=== PATIENT | female | born 1970 | race Caucasian/White ===

== ENCOUNTER 2017-06-24 10:55 | Day surgery (SDC) | payer OTHER ==
[2017-06-18 15:15] LABS: CLARITY,URINE CLOUDY (Clear); COLOR,URINE YELLOW (Yellow); GLUCOSE, URINE NEGATIVE (Neg); KETONES,URINE NEGATIVE (Neg); LEUKOCYTE ESTERASE ,URINE TRACE (Neg); NITRITES, URINE NEGATIVE (Neg); OCCULT BLOOD,URINE TRACE-INTACT (Neg); PROTEIN,URINE NEGATIVE (Neg); UROBILINOGEN,URINE 0.2 E.U/dL (0.2-1.0)
[2017-06-18 15:18] LABS: BASOPHILS # (AUTO) 0.1 X10'3 (0-0.2); BASOPHILS % (AUTO) 0.8 % (0-1); EOSINOPHILS # (AUTO) 0.4 X10'3 (0-0.9); EOSINOPHILS % (AUTO) 3.5 % (0-6); LYMPHOCYTES # (AUTO) 3.3 X10'3 (1.1-4.8); LYMPHOCYTES % (AUTO) 29.2 % (21-51); MEAN CORPUSCULAR HEMOGLOBIN 30.9 PG (27.0-31.0); MEAN CORPUSCULAR HGB CONC 33.9 % (33.0-36.5); MEAN CORPUSCULAR VOLUME 91.2 FL (78-98); MEAN PLATELET VOLUME 8.3 FL (7.4-10.4); MONOCYTES # (AUTO) 0.8 X10'3 (0-0.9); MONOCYTES % (AUTO) 7.5 % (2-12); NEUTROPHILS # (AUTO) 6.6 X10'3 (1.8-7.7); PRE OP HEMATOCRIT 42.1 % (35.0-45.0); PRE OP HEMOGLOBIN 14.3 g/dL (12.0-16.0); PRE OP PLATELET COUNT 428 X10'3 (140-440); RED BLOOD COUNT 4.62 X10'6 (4.20-5.60); RED CELL DISTRIBUTION WIDTH 14.5 % (11.5-14.5)
[2017-06-18 15:19] LABS: UA COLLECTION TYPE CLN CATCH MIDSTREAM
[2017-06-18 15:24] LABS: BACTERIA,URINE 2+ /HPF (Neg); SQUAMOUS EPITHELIAL CELL,UR MANY /LPF (FEW); WBC,URINE 0-4 /HPF (0-4)
[2017-06-18 15:27] LABS: ALBUMIN 3.3 G/DL (3.4-5.0); ALBUMIN/GLOBULIN RATIO 0.8 (1.1-1.5); ALKALINE PHOSPHATASE 93 IU/L (46-116); BLOOD UREA NITROGEN 12 MG/DL (7-18); BUN/CREATININE RATIO 16.7 (6.6-38.0); CALCIUM 9.6 MG/DL (8.5-10.1); CHLORIDE 104 MMOL/L (99-107); CREATININE 0.72 MG/DL (0.40-0.90); PRE OP ALT 27 U/L (30-65); PRE OP ANION GAP 7 (8-16); PRE OP AST 12 U/L (10-37); PRE OP BILIRUB, TOTAL 0.2 MG/DL (0.0-1.0); PRE OP GLUCOSE 93 MG/DL (70-104); PRE OP POTASSIUM 4.2 MMOL/L (3.4-5.1); PRE OP SODIUM 141 MMOL/L (135-145); TOTAL CARBON DIOXIDE 30.1 MMOL/L (24-32); TOTAL PROTEIN 7.6 G/DL (6.4-8.2); eGFR 86 ML/MIN
[2017-06-24] VITALS (10 sets, daily range): BP systolic 112–158; BP diastolic 48–99
[~2017-06-24] VITALS: Ht 170.2 cm; Wt 100.9 kg
[~2017-06-24 10:55] MED LIST: ACET-2119 PO; ALBU8.5H8 INH; DULO60CA64 PO; GABA-530 PO; ceFAZolin inj. 2,000 MG in dextrose 5%-water 100 ML IV ONE; cefazolin/dext.iso 2gm/50ml 50 ML IV ONE; famotidine 20mg tablet PO ONE; ringers solution, lacted 1,000 ML IV SCH
[2017-06-24] MEDS ORDERED: LIDOcaine 1% (10mg/ml) 2ml vial ONE (11:08)
[2017-06-24] MEDS ORDERED: LORazepam 2 mg/ml vial IV ONE ×2 (12:40→13:05)
[2017-06-24] MEDS ORDERED: midazolam 2 mg/2 ml injection ONE (13:03)
[2017-06-24] MEDS ORDERED: fentaNYL /PF 50mcg/ml 5ml ampule ONE (13:03)
[2017-06-24] MEDS ORDERED: LIDOcaine 1%/PF (10mg/ml) 5ml vial ONE (13:05)
[2017-06-24] MEDS ORDERED: ceFAZolin 1000mg inj ONE (13:19)
[2017-06-24] MEDS ORDERED: BUPIVAcaine/PF 2.5 mg/ml (0.25%) 30ml vial ONE (13:19)
[2017-06-24] MEDS ORDERED: sevoflurane 250ml liquid IH ONE (13:29)
[2017-06-24] MEDS ORDERED: ondansetron/PF 4mg/2ml inj ONE (13:29)
[2017-06-24] MEDS ORDERED: neostigmine methylsulfate 1 MG/ML 10ml vial ONE (13:29)
[2017-06-24] MEDS ORDERED: glycopyrrolate 0.2mg/ml inj ONE (13:29)
[2017-06-24] MEDS ORDERED: rocuronium 10mg/ml inj IV ONE (13:37)
[2017-06-24] MEDS ORDERED: ketorolac trometh. 30mg/ml inj. ONE (13:45)
[2017-06-24] MEDS ORDERED: dexamethasone sod phosphate 4mg/ml inj. ONE (13:45)
[2017-06-24] MEDS ORDERED: HYDROcodone/acetaminophen 10/325mg tab PO ONE (15:20)
[2017-06-24] MEDS ORDERED: meperidine/PF 25mg/ml syringe ONE ×2 (15:25→15:33)
[2017-06-24] MEDS ORDERED: ringers solution, lacted 1,000 ML IV SCH (15:39)
[2017-06-24] MEDS ORDERED: proCHLORperazine 10 MG/2 ml inj IV PRN (15:40)
[2017-06-24] MEDS ORDERED: ondansetron/PF 4mg/2ml inj IV PRN (15:40)
[2017-06-24] MEDS ORDERED: meperidine/PF 50mg/ml syringe IV PRN ×2 (15:40)
[2017-06-24] MEDS ORDERED: acetaminophen 1,000mg/100ml IV 100 ML IV ONE (15:55)
[2017-06-24] MEDS ORDERED: ipratropium/albuterol 3ml nebule IH ONE (15:55)
== END 2017-06-24 16:28 | disposition home or self-care (01) ==
LOC: PAS 10:55
PROVIDERS: ATTEND Surgery
DX: K43.2 Incisional hernia without obstruction or gangrene (principal); F17.210 Nicotine dependence, cigarettes, uncomplicated; J45.998 Other asthma; G47.33 Obstructive sleep apnea (adult) (pediatric); E66.9 Obesity, unspecified; F41.9 Anxiety disorder, unspecified; F32.9 Major depressive disorder, single episode, unspecified; Z79.82 Long term (current) use of aspirin; Z68.34 Body mass index [BMI] 34.0-34.9, adult; Z88.5 Allergy status to narcotic agent; Z90.710 Acquired absence of both cervix and uterus; Z90.49 Acquired absence of other specified parts of digestive tract; Z98.890 Other specified postprocedural states; Z79.899 Other long term (current) drug therapy
CPT/HCPCS: 36415; 49565; 49568; 71046; 80053; 81001; 85025; 93005; 94640; 94760; A6449; C1713; C1781; J0131; J0690; J1100; J1885; J2001; J2060; J2175; J2250; J2405; J2710; J3010; J3490; J7060; J7120; A7000

== ENCOUNTER 2017-06-27 09:59 | Emergency (ER) | payer OTHER ==
[~2017-06-27] VITALS: Ht 170.2 cm; Wt 102.7 kg
[~2017-06-27 09:59] MED LIST changes: -ceFAZolin inj. 2,000 MG in dextrose 5%-water 100 ML IV ONE; -cefazolin/dext.iso 2gm/50ml 50 ML IV ONE; -famotidine 20mg tablet PO ONE; -ringers solution, lacted 1,000 ML IV SCH
[2017-06-27] MEDS ORDERED: HYDR-3965 PO (10:45)
[2017-06-27 10:59] VITALS: BP 159/86
== END 2017-06-27 11:00 | disposition home or self-care (01) ==
LOC: ER 10:00
DX: G89.18 Other acute postprocedural pain (principal); R10.9 Unspecified abdominal pain; Z79.899 Other long term (current) drug therapy
CPT/HCPCS: 99283

== ENCOUNTER 2017-07-12 19:56 | Emergency (ER) | payer OTHER ==
[~2017-07-12] VITALS: Ht 170.2 cm; Wt 103.1 kg
[~2017-07-12 19:56] MED LIST changes: +HYDR-3965 PO
[2017-07-12 20:11] VITALS: BP 135/88
[2017-07-12] MEDS ORDERED: TRIA15CR61 TOP (21:43)
[2017-07-12] MEDS ORDERED: PRED50TA PO (21:43)
[2017-07-12] MEDS ORDERED: dexamethasone sod phosphate 10mg/ml inj IM STA (21:45)
== END 2017-07-12 21:54 | disposition home or self-care (01) ==
LOC: ER 19:56
DX: L23.9 Allergic contact dermatitis, unspecified cause (principal); Z90.49 Acquired absence of other specified parts of digestive tract; Z90.710 Acquired absence of both cervix and uterus; Z88.5 Allergy status to narcotic agent; Z79.899 Other long term (current) drug therapy
CPT/HCPCS: 96372; 99283; J1100